=== PATIENT | male | born 1960 | race Caucasian/White ===

== ENCOUNTER 2024-10-27 22:04 | Inpatient (IN) | payer MEDICARE, OTHER, SELFPAY ==
[2024-10-27 18:17] VITALS: BP 117/76
[2024-10-27 18:37] LABS: % Basophils 0.4 % (0-2); % Eosinophils 0.2 % (0-6); % Immature Granulocytes 0.3 % (0-0.5); % Lymphocytes 5.9 % (20.5-51.1); % Monocytes 7.7 % (1.7-9.3); % Neutrophils 85.5 % (42.2-75.2); Absolute Basophils 0.1 10^3/uL (0-0.2); Absolute Immature Granulocytes 0.1 10^3/uL (0-0.05); Absolute Lymphocytes 1.1 10^3/uL (1.2-3.4); Absolute Monocytes 1.4 10^3/uL (0.1-0.6); Absolute Neutrophils 15.6 10^3/uL (1.4-6.5); Hematocrit 39.7 % (39.0-52.0); Hemoglobin 13.4 g/dL (13.0-18.0); Mean Corp Hgb Conc. 33.8 g/dL (33.0-37.0); Mean Corpuscular Hgb 29.6 pg (27.0-31.0); Mean Corpuscular Volume 87.8 fL (80.0-94.0); Mean Platelet Volume 8.9 fL (7.4-10.4); Nucleated Red Blood Cells % 0 % (-); Platelet Count 336 10^3/uL (130-400); Red Blood Cell Count 4.52 10^6/uL (4.70-6.10); Red Cell Dist. Width 12.2 % (11.5-14.5); White Blood Cell Count 18.3 10^3/uL (4.8-10.8)
[2024-10-27 18:51] LABS: ALT (SGPT) 20 U/L (0-50); AST (SGOT) 23 U/L (17-59); Albumin 4.8 g/dl (3.5-5.0); Alkaline Phosphatase 48 U/L (38-126); Blood Urea Nitrogen 21 mg/dl (9-20); Calcium 9.8 mg/dl (8.4-10.2); Carbon Dioxide 23 mmol/L (22-30); Chloride 100 mmol/L (98-107); Glucose 160 mg/dl (70-99); Potassium 4.5 mmol/L (3.5-5.1); Sodium 136 mmol/L (135-145); Total Bilirubin 0.9 mg/dl (0.2-1.3); Total Protein 7.1 g/dl (6.3-8.2); eGFR > 60.00
--- NOTE | 2024-10-27 20:07 | ED.GENMED ---
History of Present Illness
<Domenico Billings PA-C - Last Filed: 10/28/24 00:17>
General
Chief Complaint: Fainting/Passed Out
Source: patient, spouse and family
Time Seen by Provider: 10/27/24 19:32
History of Present Illness
History of Present Illness:
64-year-old male with past medical history of hypertension hyperlipidemia presenting to the emergency department via EMS after he had a syncopal episode while out to dinner with his and friends approximately 30 minutes prior to arrival to the
emergency department. Patient reports that around 3:00 this afternoon while in his basement doing some housework he developed transient lightheadedness, pain in the left posterior portion of his neck, nausea and diaphoresis which lasted for a few
minutes. Patient states that the lightheadedness did persist and he went to lay down but eventually this all passed and he felt well enough to go to dinner. Patient's spouse reports that while sitting at the table patient just slumped over on his
chair, lost consciousness and was laid on the ground. After a few seconds patient awoke and proceeded to have voluminous nonbloody nonbilious emesis. At time of my exam patient reports he is asymptomatic other than feeling fatigued. No reported
fevers, chills, rigors, chest pain, shortness of breath, abdominal pain, lower extremity weakness or numbness, upper extremity weakness, numbness or paresthesia. Patient does note maybe a month ago he had a little bit of an cough but states no
complications from this. Social history was noncontributory. Family history is noted for father having a heart attack at the age of 61. Also of note, patient follows with cardiology at [facility] for which he sees every 6 months stating that he
has mild aortic stenosis which they monitor with echocardiogram. Reportedly had a stress test within the last 2 years which was unremarkable.
Past History
<Domenico Billings PA-C - Last Filed: 10/28/24 00:17>
Past History
ED Past Medical History: HTN and Hypercholesterolemia
ED Past Surgical History: None
Social History
Tobacco: Non-smoker
Alcohol: None
Drug: None
Personal:
Living: with family
Review of Systems
<Domenico Billings PA-C - Last Filed: 10/28/24 00:17>
Review of Systems
All Other Systems: ROS reviewed and negative except as documented in HPI and ROS
Phy Exam
<Domenico Billings PA-C - Last Filed: 10/28/24 00:17>
Physical Exam
Physical Exam:
GENERAL: Alert , in no apparent distress
EYE: clear conjunctiva b/l
HEAD: NCAT
ENT: o/p clr, mmm.
CARDIAC: Regular rate and rhythm, faint systolic murmur right second intercostal space.
LUNGS: Clear breath sounds bilaterally, no acute respiratory distress, no wheezes/rales/rhonchi
ABDOMEN: Soft, without focal tenderness, no r/g, no cvat
NEUROLOGICAL: Alert and oriented
SKIN: Warm and dry, skin intact.
MUSCULOSKELETAL: No edema, well perfused.
PSYCH: Normal and appropriate interaction.
Scores
<Domenico Billings PA-C - Last Filed: 10/28/24 00:17>
Heart Failure Risk
Heart Failure Risk Score: Not Applicable
Heart Score for Chest Pain Patients
STEMI patient?: No
History: Slightly or Non-Suspicious
ECG: Normal
Age: >/= 65 years
Risk Factors: 1 or 2 Risk Factors
Troponin: >1 - <3 x Normal Limit
Heart Score for Chest Pain Patients: 4
Heart Score Risk: 20.3% MACE over next 6 weeks
Withdrawal Assessment of Alcohol
Withdrawal Assessment Completed?: Not applicable
Course
<Domenico Billings PA-C - Last Filed: 10/28/24 00:17>
Orders/Labs/Results
Orders:
Orders
10/27/24 18:14
ECG [Electrocardiogram (*1)] Urgent
Reason for Study: Syncope
EKG- Treatment ONCE
10/27/24 18:27
Complete Blood Count/With Diff Urgent
Comprehensive Metabolic Panel Urgent
Troponin I Urgent
10/27/24 19:33
Urinalysis Reflex To Culture Urgent
10/27/24 19:34
CR Chest - 2 Views Urgent
Comment:
Reason For Exam: leukocytosis, syncope
10/27/24 20:01
Aspirin Chewable [Low Strength Aspirin] 324 mg PO NOW STA
10/27/24 20:41
COVID-19 Antigen Urgent
Source: Nasal Swab
Influenza A+B Rapid Molecular Urgent
IRENA Source: Nasal Swab
Specimen Description:
10/27/24 21:43
Admit/Transfer Patient As Directed
Co-Sign Provider:
Level of Care: Inpatient admission
Assign to:: Telemetry
Physician / Group: shayna
Diagnosis: syncope
Reason for Telemetry: Syncope
Date to Stop Telemetry: 10/29/24
Time to Stop Telemetry: 11:00
Reason for Hospitalization: syncope
Expected length of stay greater than two midnights?: Yes
ELOS- Estimated Length of Stay in days: 3
I certify the patient meets the requirements for IP care: Yes
Code Status As Directed
Resuscitation Status: Full Code
PRN Pain Medication Management As Directed
May give lesser potent ordered pain med per pt: Yes
preference::
Protocol:: Medication orders for pain may be administered in a
manner that supports deferring to patient preference
when the pt is:
- Requesting an ordered lesser potent pain medication.
Least to most potent pain medications are defined
as: acetaminophen < NSAID < tramadol < opioids
(morphine, oxycodone, hydromorphone).
- Requesting a lesser dose of the same medication IF
ORDERED.
- Requesting a less intrusive route of administration
if both routes are prescribed by the provider (PO <
IV).
10/27/24 22:01
Troponin I Urgent
10/29/24 11:00
DC Protocol for Telemetry ONCE
Abnormal Lab Results
10/27/24 10/27/24
18:27 22:01
WBC 18.3 H 10^3/uL
(4.8-10.8)
RBC 4.52 L 10^6/uL
(4.70-6.10)
Abs Immat Gran (auto) 0.1 H 10^3/uL
(0-0.05)
Absolute Neuts (auto) 15.6 H 10^3/uL
(1.4-6.5)
Absolute Lymphs (auto) 1.1 L 10^3/uL
(1.2-3.4)
Absolute Monos (auto) 1.4 H 10^3/uL
(0.1-0.6)
Neutrophils % 85.5 H %
(42.2-75.2)
Lymphocytes % 5.9 L %
(20.5-51.1)
BUN 21 H mg/dl
(9-20)
Glucose 160 H mg/dl
(70-99)
Troponin I 0.050 H* ng/ml 0.167 H* D ng/ml
10/27/24 18:27
10/27/24 18:27
Vital Signs
Initial and Last Documented VS:
Initial Vital Signs
Temp Pulse Resp BP Pulse Ox
98 F 89 18 117/76 96
10/27/24 18:17 10/27/24 18:17 10/27/24 18:17 10/27/24 18:17 10/27/24 18:17
Last Documented Vital Signs
Temp Pulse Resp BP Pulse Ox
98 F 81 16 125/84 96
10/27/24 18:17 10/27/24 22:04 10/27/24 22:04 10/27/24 22:04 10/27/24 22:04
<Terry Lazo, DO - Last Filed: 10/27/24 20:24>
Orders/Labs/Results
Orders:
Orders
10/27/24 18:14
ECG [Electrocardiogram (*1)] Urgent
Reason for Study: Syncope
EKG- Treatment ONCE
10/27/24 18:27
Complete Blood Count/With Diff Urgent
Comprehensive Metabolic Panel Urgent
Troponin I Urgent
10/27/24 19:33
Urinalysis Reflex To Culture Urgent
10/27/24 19:34
CR Chest - 2 Views Urgent
Comment:
Reason For Exam: leukocytosis, syncope
10/27/24 20:01
Aspirin Chewable [Low Strength Aspirin] 324 mg PO NOW STA
10/27/24 20:41
COVID-19 Antigen Urgent
Source: Nasal Swab
Influenza A+B Rapid Molecular Urgent
IRENA Source: Nasal Swab
Specimen Description:
10/27/24 21:43
Admit/Transfer Patient As Directed
Co-Sign Provider:
Level of Care: Inpatient admission
Assign to:: Telemetry
Physician / Group: [email or web address]
Diagnosis: syncope
Reason for Telemetry: Syncope
Date to Stop Telemetry: 10/29/24
Time to Stop Telemetry: 11:00
Reason for Hospitalization: syncope
Expected length of stay greater than two midnights?: Yes
ELOS- Estimated Length of Stay in days: 3
I certify the patient meets the requirements for IP care: Yes
Code Status As Directed
Resuscitation Status: Full Code
PRN Pain Medication Management As Directed
May give lesser potent ordered pain med per pt: Yes
preference::
Protocol:: Medication orders for pain may be administered in a
manner that supports deferring to patient preference
when the pt is:
- Requesting an ordered lesser potent pain medication.
Least to most potent pain medications are defined
as: acetaminophen < NSAID < tramadol < opioids
(morphine, oxycodone, hydromorphone).
- Requesting a lesser dose of the same medication IF
ORDERED.
- Requesting a less intrusive route of administration
if both routes are prescribed by the provider (PO <
IV).
10/27/24 22:01
Troponin I Urgent
10/29/24 11:00
DC Protocol for Telemetry ONCE
Abnormal Lab Results
10/27/24 10/27/24
18:27 22:01
WBC 18.3 H 10^3/uL
(4.8-10.8)
RBC 4.52 L 10^6/uL
(4.70-6.10)
Abs Immat Gran (auto) 0.1 H 10^3/uL
(0-0.05)
Absolute Neuts (auto) 15.6 H 10^3/uL
(1.4-6.5)
Absolute Lymphs (auto) 1.1 L 10^3/uL
(1.2-3.4)
Absolute Monos (auto) 1.4 H 10^3/uL
(0.1-0.6)
Neutrophils % 85.5 H %
(42.2-75.2)
Lymphocytes % 5.9 L %
(20.5-51.1)
BUN 21 H mg/dl
(9-20)
Glucose 160 H mg/dl
(70-99)
Troponin I 0.050 H* ng/ml 0.167 H* D ng/ml
10/27/24 18:27
10/27/24 18:27
Vital Signs
Initial and Last Documented VS:
Initial Vital Signs
Temp Pulse Resp BP Pulse Ox
98 F 89 18 117/76 96
10/27/24 18:17 10/27/24 18:17 10/27/24 18:17 10/27/24 18:17 10/27/24 18:17
Last Documented Vital Signs
Temp Pulse Resp BP Pulse Ox
98 F 81 16 125/84 96
10/27/24 18:17 10/27/24 22:04 10/27/24 22:04 10/27/24 22:04 10/27/24 22:04
<Domenico Billings PA-C - Last Filed: 10/28/24 00:17>
MDM/Problems Addressed
Differential Diagnosis Includes:
Vagal event, cardiac dysrhythmia, ACS, vertebral dissection, aortic dissection, less concern for PE, given potential recent viral illness, myocarditis/pericarditis, dehydration, COVID/flu
MDM/Problems Addressed:
64-year-old male presenting the emergency department via EMS after a syncopal event at a restaurant. Patient had no prodromal symptoms at that time but earlier in the day did have some lightheadedness, diaphoresis and posterior neck pain. Biggest
concern would be vascular etiology versus an atypical ACS presentation. Labs were initiated on arrival which show a leukocytosis of 18,000 and a very mild elevated troponin at 0.050. Case discussed with Dr. Lazo who will also evaluate the
patient to help determine further testing/imaging. 324 of aspirin ordered. Plan for admission for further workup.
Chronic conditions affecting care: HTN
<Domenico Billings PA-C - Last Filed: 10/28/24 00:17>
*Radiology
Radiology exam reviewed: preliminary read by ED provider (No widened mediastinum)
*Pulse Oximetry
Patient hypoxic: no
*EKG
Interpreted by ED Provider?: Yes
Heart Rate: 92
Rate: normal
Rhythm: sinus
[place]: normal axis
Ischemia: no ischemia
*Credit Portfolio Manager Interpretation
Rate: normal
Rhythm: sinus
*Critical Care Note
Total Time (30-74mins, 75-104mins- exclusive of procedures): Not Applicable
Data Reviewed
Review of Other/Old Records Reveals: Records
<Domenico Billings PA-C - Last Filed: 10/28/24 00:17>
Patient Management
Discussion with other providers: Hospitalist and Punch Out Crew Member
Escalation/DeEscalation of care consider admission/obs:
Case was discussed with cardiology due to patient's presentation and concerning symptoms for ACS. Cardiology does not recommend heparin at this time however if troponin continues to rise or patient develops chest discomfort this could certainly be
initiated. They will evaluate the patient in the morning. Hospitalist team accepts for continued evaluation and treatment. Repeat troponin was ordered.
ED Attending Note
<Domenico Billings PA-C - Last Filed: 10/28/24 00:17>
-
Portions of this chart may have been created with voice recognition software.� Occasional wrong word or��sound alike� substitutions may have occurred due to the inherent limitations of voice recognition software.
<Terry Lazo DO - Last Filed: 10/27/24 20:24>
ED Attending Note
Patient seen and examined by attending physician: Yes
I performed the substantive portion of visit, reviewed & personally made and approve the management plan that is documented in note by myself or REYNA.: Yes
ED Attending Note:
I have seen and evaluated the patient with a [id number] encounter. I have spoken to the advance practicer provider and involved in the medical history, the physical exam, medical decision making.
Evaluation and management service: agree unless noted differently below.
Results interpretation: agree unless noted differently below.
Focused HPI: 64-year-old male presenting for evaluation of syncope. Patient was doing mild lifting and work in the basement earlier today. He felt very dizzy and lightheaded. Since the symptoms resolved, he went out to dinner with his .
While at dinner, patient syncopized while sitting without any preceding symptoms. Patient has been complaining of neck pain but he localizes the pain to the back of the neck and not the front. He denies any active chest pain or shortness of
breath. He does acknowledge that his father had an IL around his age. He follows with [facility]ology and states he had a stress and echo 1.5 years ago which were normal. He has a history of aortic stenosis and states he got a good bill of
health recently but was told he may need a valve replacement in 10 years
Physical exam: Sitting in bed comfortably. No tenderness to carotid palpation. Heart regular rate and rhythm. Murmur auscultated. No leg edema or tenderness
Medical Decision Making: Given his syncope at rest and his elevated troponin, will give aspirin and discussed case with cardiology. Will discuss whether or not to start heparin. He has no active chest pain or shortness of breath. Patient will
likely require echo and +/- catheterization
Given no active chest or back pain or carotid tenderness, aortic and carotid dissection less likely
Discharge Plan
Departure
Patient Disposition: Admit
Date of Disposition: 10/27/24
Time of Disposition: 21:16
Presentation/result/management discussed w/ accepting MD/DO: Hospitalist
Discharge Problem:
Syncope and collapse, Elevated troponin
Interventions
Interventions:
*Risk Screen - Suicide Last Done: 10/27/24 18:17
*General Assessment Last Done: 10/27/24 18:17
*Neglect/Abuse Screening Last Done: 10/27/24 18:17
[2024-10-27] MEDS: LOW STRENGTH ASPIRIN 324 MG PO (20:41)
--- NOTE | 2024-10-27 21:18 | HPS.HSE ---
Family Physician
-
Family Physician: Toshia Krishnan MD
Chief Complaint
-
syncope
History of Present Illness
4-year-old male with past medical history of hypertension hyperlipidemia presenting to the emergency department via EMS after he had a syncopal episode while out to dinner with his and friends patient reports that around 3:00 this afternoon
while in his basement doing some housework he developed transient lightheadedness, pain in the left posterior portion of his neck, nausea which lasted for few seconds.Patient's spouse reports that while sitting at the table patient just slumped over
on his chair, lost consciousness and was laid on the ground. After a few seconds patient awoke and proceeded to have voluminous nonbloody nonbilious emesis. denied ALVES. denied fever, chills, chest pain, palpitation, sob.denied abdominal pain.
denied dysuria or hematuria.
upon arrival he was noted to have elevated wbc and trop. Patient received a dose of aspirin in the ER. Admitting for further management
Medical History
Past Medical History
Past Medical History: Reports Other
Additional Past Medical History:
Hypertension hyperlipidemia, aortic stenosis,
Past Surgical History: Reports None and Other
Additional Past Surgical History:
wisdom teeth extraction
Social History
Tobacco: Non-smoker
Alcohol: None
Drug: None
Personal:
Living: With Family
Family History
Family History: Not pertinent
Allergies / Home Medications
Allergies reflects when Allergies were last updated in [employer].
Home Medications with original date entered in [employer]
Allergy/Medication List:
Allergies
Allergy/AdvReac Type Severity Reaction Status Date / Time
No Known Allergies Allergy Verified 10/27/24 18:16
Review of Systems
-
Constitutional: Reports Fatigue
EENT: Reports No Symptoms
Respiratory: Reports No Symptoms
Cardiac: Reports Syncope
Abdomen/GI: Reports No Symptoms
: Reports No Symptoms
Musculoskeletal: Reports No Symptoms
Skin: Reports No Symptoms
Neurological: Reports No Symptoms
Endocrine: Reports No Symptoms
Hematologic/Lymphatic: Reports No Symptoms
Psych: Reports No Symptoms
Physical Exam
Vital Signs
Vital Signs
Temp Pulse Resp BP Pulse Ox
98 F 89 18 117/76 96
10/27/24 18:17 10/27/24 18:17 10/27/24 18:17 10/27/24 18:17 10/27/24 18:17
Physical Exam
General: Well Developed, Well Nourished and No Apparent Distress
HEENT: NormoCephalic, Moist mucous membranes and Atraumatic
Respiratory: Clear
Cardiac: S1/S2 and Regular Rhythm; No Murmur or Rub
GI: Soft, Non Tender, Non Distended and Normal Bowel Sounds; No Organomegaly
Rectal: Deferred by Provider
Musculoskeletal: No Clubbing, No Cyanosis and No Edema
Skin: No Rash
Neuro: AO x 3 and Nonfocal/grossly intact
Psych: Calm
Laboratory Results
-
10/27/24 18:27
10/27/24 18:27
Laboratory Results
Total Bilirubin 0.9 mg/dl (0.2-1.3) 10/27/24 18:27
AST 23 U/L (17-59) 10/27/24 18:27
ALT 20 U/L (0-50) 10/27/24 18:27
Alkaline Phosphatase 48 U/L (38-126) 10/27/24 18:27
Troponin I 0.050 ng/ml H* 10/27/24 18:27
Data Reviewed
-
Lab Data: Labs Reviewed by me
Impression/Plan
-
# Syncope /elevated trop concern for ACS
#hxt of Aortic stenosis
-tro 0.050
-EKG NSR
-Obtain D-dimer
-Obtain echocardiogram
-obtain orthostatics
-Trend troponin
-Cardiology consult
#leukocytosis likely stress reaction
-wbc 18.3
-UA pending
-Chest x-ray pending
# Essential hypertension
-Norvasc and valsartan continued
# Hyperlipidemia
-Statin continued
# DVT prophylaxis
-Lovenox subcu
# CODE STATUS
-Full code
[2024-10-27 21:33] LABS: COVID-19 Antigen Negative (Negative)
--- NOTE | 2024-10-27 21:38 | W.PN.UPDATE ---
Update Note
Progress Note Update
Patient seen in conjunction with ALISHA. I agree with findings on history and physical. I concur with the assessment and plan.
Briefly, this is a 64-year-old with past medical history significant for hypertension, hyperlipidemia, with diagnosis of mild to moderate aortic stenosis pain followed by cardiology at [facility] who presents to the emergency department after
syncopal episode at dinner.
Patient actually reported being in usual state of health up until this afternoon when at around 3 PM after performing some walking his basement he felt lightheaded. During the lightheaded episode he also felt nauseous. He denied having any chest
pain at that time. He denied any palpitations. He denied any shortness of breath. He denied any numbness or tingling. He denied any focal neurological deficits. This lasted for about an hour and a check his blood pressure which was stable at
that time 116/81. He had taken his usual blood pressure medications. There were no other changes in his symptoms such as any recent cough cold or flulike illness. No recent lower extremity swelling. No orthopnea or PND or exertional dyspnea. He
had no diarrhea or vomiting. No melena or hematochezia.
Patient later went to dinner. While sitting down within 14 he essentially collapsed. He slumped in his chair and was unresponsive for less than a minute. There was no seizure-like activity noted. He had no loss of bladder or bowel continence.
He denied any presyncopal chest pain, palpitations, lightheadedness headache or dizziness. After return of consciousness patient had no postictal confusion or depression. He had 2 episodes of vomiting after the syncopal episode and en route to the
emergency department that was voluminous but nonbloody and nonbilious. He had no chest pain. He had not had any additional vomiting since then and currently denies any symptoms.
In the emergency department he was afebrile, blood pressure was 117/76 with a pulse of 89 satting 96% on room air. ECG showed a normal sinus rhythm at a rate of [address] or T wave changes. Troponin was 0.05. Chest x-ray shows no
acute infiltrates. CBC notable for white count of 18,000 but otherwise unremarkable.
Exam is completely benign.
Patient with presyncope then a syncopal episode that is highly concerning for cardiac arrhythmia (cira/tachy) and less likely an acute ischemic process. No evidence to suggest hypovolemia/orthostasis and no particular indication of a vasovagal
episode. Past medical history only notable for mild aortic stenosis.
- admit to telemetry and monitor at least 24 hours
- trend troponin
- s/p aspirin 324, monitor for now
- check tsh, cardiovascular panel and a1c
- check d-dimer
- echo in am
- orthostatic vs
- trend wbc, fever profile for now, no signs of acute infection
- cardiology consulted and aware.
DVT PPX - lovenox
Code status - full code
[2024-10-27 22:00] VITALS: BMI 29.3
[2024-10-27 22:04] VITALS: BP 125/84
[2024-10-27 22:45] LABS: Troponin I 0.167 ng/ml
[2024-10-28] VITALS (23 sets, daily range): BP systolic 107–147; BP diastolic 70–95; PULSE 71–83; BMI 25.8
[2024-10-28 00:05] LABS: Hematocrit 37.5 % (39.0-52.0); Hemoglobin 12.9 g/dL (13.0-18.0); Mean Corp Hgb Conc. 34.4 g/dL (33.0-37.0); Mean Corpuscular Hgb 29.8 pg (27.0-31.0); Mean Corpuscular Volume 86.6 fL (80.0-94.0); Mean Platelet Volume 9.4 fL (7.4-10.4); Platelet Count 354 10^3/uL (130-400); Red Blood Cell Count 4.33 10^6/uL (4.70-6.10); Red Cell Dist. Width 12.2 % (11.5-14.5); White Blood Cell Count 13.5 10^3/uL (4.8-10.8)
[2024-10-28 00:13] LABS: APTT 26.4 Sec (23.4-35.0)
[2024-10-28 01:33] LABS: D-Dimer < 0.27 ug/mlFEU (0.00-0.50)
[2024-10-28] MEDS: HEPARIN 25000 UNITS/250 ML IV ×2 (01:35→22:33)
[2024-10-28 02:32] LABS: Urine Albumin 2+ (Neg - Trace); Urine Bilirubin Negative (Negative); Urine Character Clear (Clear); Urine Color Yellow; Urine Glucose Negative (Negative); Urine Ketone 3+ (Negative); Urine Leukocyte 1+ (Negative); Urine Nitrite Negative (Negative); Urine Occult Blood 1+ (Negative); Urine Specific Gravity 1.025 (<1.030); Urine Urobilinogen Negative (Neg - 1+)
[2024-10-28 03:01] LABS: Urine Amorphous Seen; Urine Mucus Many; Urine White Cell 16-20 /HPF (0-5)
[2024-10-28 03:02] LABS: Urine Bacteria Many (Negative); Urine Calcium Oxalate Crystals Seen
[2024-10-28 03:03] LABS: Urine Squamous Cell 16-20 /LPF (Few)
[2024-10-28 04:05] LABS: Hematocrit 36.6 % (39.0-52.0); Hemoglobin 12.6 g/dL (13.0-18.0); Mean Corp Hgb Conc. 34.4 g/dL (33.0-37.0); Mean Corpuscular Hgb 30.4 pg (27.0-31.0); Mean Corpuscular Volume 88.4 fL (80.0-94.0); Mean Platelet Volume 9.2 fL (7.4-10.4); Platelet Count 338 10^3/uL (130-400); Red Blood Cell Count 4.14 10^6/uL (4.70-6.10); Red Cell Dist. Width 12.3 % (11.5-14.5); White Blood Cell Count 12.1 10^3/uL (4.8-10.8)
[2024-10-28 04:33] LABS: HDL Cholesterol 43 mg/dl; LDL Cholesterol, Calculated 44 mg/dl; Total Cholesterol 94 mg/dl (50-199); Triglyceride 36 mg/dl (10-149); Very Low Density Lipoprotein 7 mg/dl (0-30)
[2024-10-28 04:49] LABS: Troponin I 0.584 ng/ml
[2024-10-28 04:59] LABS: TSH Reflex To Free T4 0.65 uIU/ml (0.47-4.68)
--- NOTE | 2024-10-28 06:52 | W.PN.UPDATE ---
Update Note
Progress Note Update
RN notified BRAKE LINING DRILLER, Troponin been trending high 0.050>0.167>0.584. Patient is on Heparin drip, asymptomatic, Marine Equipment Sales Engineer made aware. Troponin trend to peak.
[2024-10-28] MEDS: NORVASC 5 MG PO (07:47)
[2024-10-28] MEDS: LOW STRENGTH ASPIRIN 81 MG PO (07:47)
[2024-10-28] MEDS: LIPITOR 10 MG PO (07:47)
[2024-10-28] MEDS: DIOVAN 160 MG PO (07:47)
[2024-10-28 08:21] LABS: APTT 35.3 Sec (23.4-35.0)
[2024-10-28 08:41] LABS: Glycohemoglobin (HgbA1c) 5.8 % (4.0-5.6)
--- NOTE | 2024-10-28 09:19 | CON.CAR ---
Consultation
Consultation Request
Date/Time Consultation Requested: October 28, 2024
Date/Time Consultation Performed: October 28, 2024
Requesting Provider: Hospitalist
Performing Provider: Dr Ritesh Montez
Reason for Consultation: Syncope
Medical History
-
Chief Complaint: Passed out
History of Present Illness:
He was brought to the emergency department at [place] via emergency medical services on October 27, 2024 after an episode of syncope. At approximately 3 PM in the afternoon on October 27 while in his basement doing some housework it is noted
that he developed transient lightheadedness as well as pain in the left posterior portion of his neck along with nausea and diaphoresis which lasted a few minutes. He then went to lay down and after he got up he did feel better. He felt well
enough to go out to dinner. Then while at dinner patient's spouse notes that while he was sitting at the table he simply slumped over in his chair and lost consciousness, he was laid gently to the ground. After few seconds patient awoke and
proceeded to have voluminous vomiting. By the time he presented to the emergency department he had no complaints other than feeling very fatigued.
He has had no recent fevers chills or night sweats. No chest pain. No shortness of breath. No abdominal discomfort. No extremity numbness weakness or tingling, no difficulty with speech or swallow.
His EKG on presentation October 27, 2024 reviewed by me and shows sinus rhythm, normal EKG
EKG from this morning October 28, 2024 reviewed by me and finds sinus rhythm with occasional PVCs and suspected improper positioning of the limb leads
Troponin values: 0.050 -> 0.167 -> 0.584
Chest x-ray on presentation reviewed and interpreted by me finds moderate elevation of the right hemidiaphragm with adjacent atelectasis, no congestive heart failure, no obvious pneumonia.
LDL cholesterol 44, HDL 43, total cholesterol 94 and triglycerides 36
TSH 0.65
Elevated white blood cell count at 18.3 with hemoglobin and hematocrit of 13 and 40, there is a left shift with neutrophils at 85.5
BUN and creatinine 21 and 1.2 with a sodium 136, potassium 4.5, normal LFTs
Past medical history
Patient notes that he is followed at [facility] at [facility] for mild aortic stenosis.
He has hypertension
Dyslipidemia
Social History
Tobacco: Non-Smoker
Alcohol: None
Personal:
Living: With Family
Family History
Family History: CAD (Father myocardial infarction at age 61)
Allergies / Home Medications
Allergy/AdvReac Type Severity Reaction Status Date / Time
No Known Allergies Allergy Verified 10/27/24 18:16
�Medication �Instructions �Recorded �Confirmed �Type
amlodipine 5 mg tablet (Norvasc) 5 mg PO DAILY 10/27/24 10/27/24 History
atorvastatin 10 mg tablet 10 mg PO DAILY 10/27/24 10/27/24 History
valsartan 160 mg tablet 160 mg PO DAILY 10/27/24 10/27/24 History
Review of Systems
-
History Source: Patient
All other systems: Negative unless noted
Constitutional: Fatigue
EENT: No Symptoms
Respiratory: No Symptoms
Cardiac: Syncope
Abdomen/GI: Nausea and Vomiting
: No Symptoms
Musculoskeletal: No Symptoms
Skin: No Symptoms
Neurological: Dizzy
Endocrine: No Symptoms
Hematologic/Lymphatic: No Symptoms
Physical Exam
Vital Signs
Temp Pulse Resp BP Pulse Ox
98.7 F 75 0 139/84 96
10/28/24 08:00 10/28/24 09:15 10/28/24 09:15 10/28/24 09:00 10/28/24 09:15
Lab Results
10/28/24 03:48
10/27/24 18:27
Troponin I 0.584 ng/ml H* D 10/28/24 03:48
Physical Exam
General: Well Developed, Well Nourished, No Apparent Distress and Comfortable (Laying in stretcher in the emergency department smiling, no distress)
HEENT: Normocephalic, Anicteric and Moist Mucous Membranes
Respiratory: Clear and Non Labored Respirations
Cardiac: S1/S2, Regular Rhythm and Murmur (There is a grade 2/6 systolic ejection murmur at the right upper sternal border, no rubs, normal PMI)
Breast: Deferred by me
GI: Soft, Non Tender, Non Distended and Normal Bowel Sounds
Rectal: Deferred by Provider
Musculoskeletal: No Clubbing, No Cyanosis and No Edema
Skin: Warm and Dry
Neuro: Awake, Alert, Oriented and AO x 3
Psych: Calm
Impression / Plan
-
Impression/recommendations:
Syncope
Suspected vasovagal with his first episode of dizziness possibly triggered by neck pain which occurred while he was installing insulation in his basement
The second episode of syncope was rather sudden with no clear trigger. While troponin has elevated this is likely non-MD related troponin elevation to the hypotensive episode, doubt MD as trigger for syncope
Volume depletion may have played a role, recommend IV fluid hydration, will order IV fluids
Check echocardiogram in the morning
Continue to monitor telemetry closely for any arrhythmias which could be playing a role
Elevated troponin value
Troponin values: 0.050 -> 0.167 -> 0.584
Nonischemic appearing EKG x 2
This is likely non-MD related troponin elevation secondary to his hypotensive episode with vasovagal syncope but will continue to evaluate for any significant ischemic etiology
Continue to trend troponins and EKGs
He reports ' normal nuclear stress test' 1 year ago at [facility] and we should attempt to review those records on Tuesday
Consideration for a new ischemic evaluation given the elevated troponins, pending ongoing evaluation this could be considered as an inpatient or outpatient
History of aortic stenosis
Patient notes that he is followed at [facility] at [facility] for mild aortic stenosis.
It is possible that progressive aortic stenosis has played a role particularly if he is mildly hypotensive with a mild vasovagal episode in the presence of significant aortic stenosis, symptoms could be more severe
On cardiac auscultation exam the aortic stenosis is probably no more than moderate but will need to check echocardiogram to formally assess
Check echocardiogram in the morning
Hypertension
Managed with amlodipine 5 mg daily and valsartan 160 mg daily
He is normotensive and therefore would continue current outpatient antihypertensive drugs
Elevated right hemidiaphragm on admission chest x-ray
Further evaluation as per primary service
Further imaging/CT imaging?
Dyslipidemia
Managed with atorvastatin 10 mg daily
10/28/24: LDL cholesterol 44, HDL 43, total cholesterol 94 and triglycerides 36, Nl LFTs
Discussed in detail with the patient as well as his and son who are at the bedside. All of their questions have been answered.
Total time spent today was 78 minutes in preparing to see the patient, seeing the patient and coordination of care. This included review of recent laboratory evaluations, cardiac testing, imaging studies, medical and hospital records, as well as
personally interviewing and examining the patient, which included discussion of their tests, review/ordering medications, and communicating with other healthcare professionals and also treatment planning as well as counseling.
Data Reviewed
-
EKG: Tracing Personally Visualized and interpreted
Radiology: Image Personally Visualized and interpreted
Labs: Labs Reviewed by me, Discussed with Patient and Discussed with Family
[2024-10-28 10:15] LABS: Troponin I 0.622 ng/ml
--- NOTE | 2024-10-28 13:11 | W.PN.HOSP.TC ---
Today's Communication/Plan
-
pending Ur cx, will start empiric Rocephin
Assessment / Plan
Assessment / Plan
64-year-old male with past medical history of hypertension hyperlipidemia presenting to the emergency department via EMS after he had a syncopal episode while out to dinner with his and friends patient reports that around 3:00 this afternoon
while in his basement doing some housework he developed transient lightheadedness, pain in the left posterior portion of his neck, nausea which lasted for few seconds.Patient's spouse reports that while sitting at the table at dinner, prior to
eating, patient just slumped over on his chair, lost consciousness and was laid on the ground. After a few seconds patient awoke and proceeded to have voluminous nonbloody nonbilious emesis. denied ALVES. denied fever, chills, chest pain,
palpitation, sob.denied abdominal pain. denied dysuria or hematuria.
# Syncope /elevated trop concern for ACS, potentially related to
#hxt of Aortic stenosis
-tro 0.050-->0.167-->0.584-->0.622
-EKG NSR
-Obtain D-dimer
-Obtain echocardiogram
-obtain orthostatics
-Trend troponin
-Cardiology consult
#leukocytosis likely stress reaction
-wbc 18.3-->13.5-->12.1
-UA bacteria many, +WBC. Culture pending
high probability for UTI/Prostatitis - possible contributing to syncope
-Chest x-ray 1. Moderate elevation of the right hemidiaphragm with adjacent mild subpleural subsegmental atelectasis and scarring in the right lower lung which appears new from 12/08/2010.
2. No radiographic evidence for pneumonia.
# Essential hypertension
-Norvasc and valsartan continued
# Hyperlipidemia
-Statin continued
# DVT prophylaxis
-Lovenox subcu
# CODE STATUS
-Full code
Anticipated Discharge: 24 - 48 hours
Subjective/Interval History
-
Date of Service: October 28, 2024
Currently feels well, no dizziness
Objective Data
-
Labs:
Laboratory Results
10/28/24 10/28/24 10/28/24
03:48 07:52 16:00
WBC 12.1 H
Hgb 12.6 L
Hct 36.6 L
Plt Count 338
APTT 35.3 H Pending
Vital Signs:
Vital Signs
Temp Pulse Resp BP Pulse Ox
98.7 F 74 15 116/78 96
10/28/24 08:00 10/28/24 12:30 10/28/24 12:30 10/28/24 12:00 10/28/24 12:30
Review of Systems
-
History Source: Patient and Family (, son at bedside)
Constitutional: Denies Fever
EENT: Reports No Symptoms Reported
Respiratory: Reports No Symptoms; Denies Cough or Trouble Breathing
Cardiac: Reports No Symptoms; Denies Chest Pain
Abdomen/GI: Reports No Symptoms
Musculoskeletal: Reports No Symptoms
Physical Exam
-
General: Well Developed, Well Nourished and No Apparent Distress
HEENT: Normocephalic, Atraumatic and Moist Mucous Membranes
Respiratory: Clear to Auscultation; Negative Wheezes, Rales or Rhonchi
Cardiac: Regular Rhythm, S1/S2 and Murmur (3/6AS m)
GI: Nontender and Nondistended
Musculoskeletal: No Clubbing, No Cyanosis and No Edema
Neuro: Awake, Alert and Oriented
[2024-10-28] MEDS: ROCEPHIN 1000 MG IV (15:15)
[2024-10-28] MEDS: STERILE WATER FOR INJECTION 10 ML IV (15:15)
[2024-10-28 16:39] LABS: APTT 60.7 Sec (23.4-35.0)
--- NOTE | 2024-10-28 21:26 | PTCARENOTE ---
Receive pt from ER. Pt alert oriented X3, calm and cooperative. Pt walks independently to his bed, steady gait. Pt oriented to the room, call orta within reach. Pt denies dizziness, lightheadedness, or SOB. Hep gtt infusing at rate of 1400 units
(14mL) per Hr. Pt on NSR on telemonitor. VSS (T=98.5, HR=87, RR=18, HP=612/84, SpO2=96% on RA). Plan of care discussed with the pt: Echo and EKG in am. Will continue to monitor the pt.
[2024-10-29] VITALS (8 sets, daily range): BP systolic 111–138; BP diastolic 69–91; PULSE 60–103
[2024-10-29 00:07] LABS: APTT 93.1 Sec (23.4-35.0)
[2024-10-29 06:32] LABS: Hematocrit 39.6 % (39.0-52.0); Hemoglobin 13.3 g/dL (13.0-18.0); Mean Corp Hgb Conc. 33.6 g/dL (33.0-37.0); Mean Corpuscular Hgb 29.8 pg (27.0-31.0); Mean Corpuscular Volume 88.8 fL (80.0-94.0); Mean Platelet Volume 9.4 fL (7.4-10.4); Platelet Count 358 10^3/uL (130-400); Red Blood Cell Count 4.46 10^6/uL (4.70-6.10); Red Cell Dist. Width 12.2 % (11.5-14.5); White Blood Cell Count 9.6 10^3/uL (4.8-10.8)
[2024-10-29 06:49] LABS: APTT 83.9 Sec (23.4-35.0)
[2024-10-29 06:59] LABS: Troponin I 0.389 ng/ml
[2024-10-29] MEDS: LOW STRENGTH ASPIRIN 81 MG PO (09:56)
[2024-10-29] MEDS: DIOVAN 160 MG PO (09:56)
[2024-10-29] MEDS: LIPITOR 10 MG PO (09:56)
[2024-10-29] MEDS: NORVASC 5 MG PO (09:56)
--- NOTE | 2024-10-29 12:15 | W.PN.CARDCBS ---
Addendum entered and electronically signed by Diane Coronado DO 10/29/24 22:32:
I saw and examined the patient.
The Partition Setter's note was reviewed and I agree with the note.
Comment: Patient seen and examined with multiple family members at bedside. Chart/telemetry reviewed. Reviewed outpatient echocardiogram done at [facility] with Dr. Morales. Since admission, patient feels well and back at baseline. Denies chest pain
or pressure, shortness of breath, palpitations or abdominal pain. No further nausea or vomiting. No dizziness.
General: No acute distress, AAOX3
Neck: + bruit vs radiation of murmur
Heart: Regular, positive S1/S2, 2/6 MICHAEL
Lungs: CTA b/l, negative wheezes/rales/rhonchi
Abd: Positive BS, NT/ND, neg rebound/rigidity/guarding
Ext: Negative cyanosis/clubbing/edema
Neuro: nonfocal
Plan:
Presented with near syncope followed by syncope 10/27/2024
-Reports near syncopal episode/lightheadedness at home prior to going out to dinner. Suspected vasovagal with his first episode of dizziness possibly triggered by neck pain which occurred while he was installing insulation in his basement; admits
he may have been a little dehydrated. Blood pressure at the time was reportedly normal.
-Syncopal episode without prodrome while sitting in a restaurant had dinner prior to meal arriving. Episode witnessed by who denies seizure-like activity or loss of bowel/bladder. Patient states following this event he had several episodes of
vomiting while en route to [facility].
-No prior history of syncope/near syncope
-Telemetry without tacky or bradycardia arrhythmias
-Orthostatic VS negative.
-Hemoglobin A1c elevated in prediabetic range, 5.8% TSH within normal limits. Total cholesterol 94, triglycerides 36, LDL 44, HDL 43. Peak troponin 0.622. Initial WBC count 18.3. WBC count today 9.6. Hemoglobin 13.3, COVID-negative. UA +/Urine
culture no growth. Influenza swab negative. D-dimer not elevated
-2D echocardiogram with normal biventricular size and systolic function with moderate calcific aortic stenosis with peak/mean gradients 44/22 mmHg. His aortic valve is trileaflet thickened and calcified with mobile echodensities particularly on the
noncoronary cusp and aortic annular calcification. Echodensities likely areas of calcification although cannot completely exclude vegetation. I spoke with his usual business machines teacher Dr. Morales who reviewed prior echocardiogram last year with
reportedly similar aortic valve findings. For completion we will send off a set of blood cultures. Although we did briefly discuss a transesophageal echocardiogram, we will hold off for now given similar findings described on prior echocardiogram.
At time of discharge please place echocardiogram on a disk to bring to his business machines teacher
-Abnormal cardiac troponin without chest pain. Received records from [facility] and low risk exercise nuclear stress test was from 2021. Will proceed with an exercise nuclear stress test prior to discharge.
-Will consider rhythm star monitor car operator at the time of discharge
-Check carotid duplex
-Discontinue IV heparin
-Cont aspirin 81 mg daily
-Outpatient dose of atorvastatin 10 mg daily was held, will restart.
-Outpatient doses of valsartan 160 mg daily has been continued.
-Outpatient dose of amlodipine 5 mg daily has been continued.
-[facility] 10/27/24 showed moderate elevation of the right hemidiaphragm with adjacent mild subpleural subsegmental atelectasis and scarring in the right lower lung which appears new from 12/08/2010.
Anticipate discharge home tomorrow. Patient instructed to make a follow-up appointment with [facility], Dr. Gibbons. He is leaving for the [facility] with family on a [place] cruise in a couple of weeks
Original Note:
Today's Communication / Plan
-
-Working on getting outpatient records form [facility] at [facility]
-52 min in face to face and coordination of care
Impression / Plan
-
PCP: Dr. Toshia Krishnan
Card: Dr. Morales
Impression:
Admitted with syncope and elevated Troponin10/27/24
Syncope 10/27/24
near syncope associated with pain initially and then hours later abrupt syncope while seated at dinner table and then awoke and vomited
Moderate peak/mean 44/22 and KARLOS 1.1 cm sq by echo 10/29/24
Abnormal echo, thickened aortic valve
Abnormal UA with no growth on urine culture
Elevated Troponin
HTN
Hyperlipidemia
Echo 10/29/2024: Preliminary report, EF 50% without WMA, moderate AAS peak/mean 44/22 mmHg and KARLOS 1.1 cm sq
Plan:
-Patient came to [facility] with syncope 10/27/24, no recurrence. BUN was 21 and Cre 1.2 in the ER. UA abnormal, but culture without growth. Orthostatic VS negative. EF stable by echo. Troponin peaked at 0.62.
-Talked with patient and family members x4 in the room 10/29/24. Reviewed prelim echo and plan for me to call the [facility] office to get records of last echo, office visit and stress test. Patient asking about d/c to home.
-Called [facility] to get records 10/29/24, performed by me.
-Troponin peaked at 0.62, no chest pain, no WMA on echo. Await last nuclear stress test and will confer with his primary business machines teacher as well to review outpatient chart.
-Continue with Heparin gtt, renewed by hospitalist on 10/29/24
-Cont aspirin 81 mg daily
-There is no known h/o CAD.
-Outpatient dose of atorvastatin 10 mg daily was held, will restart.
-Outpatient doses of valsartan 160 mg daily has been continued.
-Outpatient dose of amlodipine 5 mg daily has been continued.
-Orthostatic VS unremarkable 10/29/24
-CXR in [facility] 10/27/24 showed moderate elevation of the right hemidiaphragm with adjacent mild subpleural subsegmental atelectasis and scarring in the right lower lung which appears new from 12/08/2010.
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
Subjective
Date of Service: October 29, 2024
Feels well, no chest pain
Objective
Labs:
10/29/24 06:18
10/27/24 18:27
Labs
Hgb 13.3 g/dL (13.0-18.0) 10/29/24 06:18
Hct 39.6 % (39.0-52.0) 10/29/24 06:18
Plt Count 358 10^3/uL (130-400) 10/29/24 06:18
APTT 83.9 Sec (23.4-35.0) H 10/29/24 06:18
Sodium 136 mmol/L (135-145) 10/27/24 18:27
Potassium 4.5 mmol/L (3.5-5.1) 10/27/24 18:27
BUN 21 mg/dl (9-20) H 10/27/24 18:27
Creatinine 1.2 mg/dL (0.7-1.3) 10/27/24 18:27
Glucose 160 mg/dl (70-99) H 10/27/24 18:27
Troponins
10/27/24 10/27/24 10/28/24
18: 22:01 03:48
Troponin I 0.050 H* 0.167 H* D 0.584 H* D
10/28/24 10/29/24
09:40 06:18
Troponin I 0.622 H* 0.389 H*
Vital Signs and I&O:
Vital Signs
Temp Pulse Resp BP Pulse Ox
98.4 F 81 18 126/78 96
10/29/24 11:20 10/29/24 11:20 10/29/24 11:20 10/29/24 11:20 10/29/24 11:20
Vital Signs
Temp Pulse Resp BP Pulse Ox
98.4 F 81 18 126/78 96
10/29/24 11:20 10/29/24 11:20 10/29/24 11:20 10/29/24 11:20 10/29/24 11:20
Intake & Output
10/27/24 10/28/24 10/29/24 10/30/24
06:59 06:59 06:59 06:59
Intake Total 112 / 112
Balance 112 / 112
Physical Exam
Physical Exam
GEN: NAD. AAOx3
HEENT: MMM
LUNGS: RA. No audible wheeze
CV: SR on tele. 10/01 syst LSB
ABD: ND
EXT: No edema B/L
NEURO: Gross non-focal
SKIN: Warm, dry and pink. No rash
[2024-10-29] MEDS: ROCEPHIN 1000 MG IV (14:12)
[2024-10-29] MEDS: STERILE WATER FOR INJECTION 10 ML IV (14:12)
--- NOTE | 2024-10-29 15:24 | W.PN.UPDATE ---
Update Note
Progress Note Update
Patient completed exercise nuclear stress test 07/09/2022. GVH study. Exercised for 13 minutes of Calvin protocol for 17.2 METS of activity and reached 103% MPHR. No significant myocardial infarction or ischemia. Low risk stress SPECT myocardial
perfusion study
Echo 11/17/2023: GVH study, EF 55 to 60%, normal RV size and function, mild to moderate concentric LVH with basal septal hypertrophy, mild to moderate peak/mean 41/18.6 mmHg and KARLOS 1.3 cm SQ, mild thickening of the anterior and posterior leaflets
of the mitral valve with mild to moderate posterior MAC and mild MR, ascending aorta mildly to moderately dilated with normal aortic root and arch
Called up to patient and updated him on the last stress test being in 2021 and he is agreeable to exercise nuclear stress test in AM.
--- NOTE | 2024-10-29 15:36 | CM ---
Alert awake oriented patient who lives with his Marcy who lives in a 1 story home with 1 step to enter. He is independent in driving and in all activities of daily living.He was offered VN he declined need.His will drive him home.
No VN hx / No SNF history
Pharmacy [facility] [id number] Krishnan
PLAN Home Declined VN
--- NOTE | 2024-10-29 18:00 | W.PN.HOSP.TC ---
Today's Communication/Plan
-
EST tomorrow
continue abx until dc
Assessment / Plan
Assessment / Plan
64-year-old male with past medical history of hypertension hyperlipidemia presenting to the emergency department via EMS after he had a syncopal episode while out to dinner with his and friends patient reports that around 3:00 this afternoon
while in his basement doing some housework he developed transient lightheadedness, pain in the left posterior portion of his neck, nausea which lasted for few seconds.Patient's spouse reports that while sitting at the table at dinner, prior to
eating, patient just slumped over on his chair, lost consciousness and was laid on the ground. After a few seconds patient awoke and proceeded to have voluminous nonbloody nonbilious emesis. denied ALVES. denied fever, chills, chest pain,
palpitation, sob.denied abdominal pain. denied dysuria or hematuria.
# Syncope /elevated trop concern for ACS, potentially related to
#hxt of Aortic stenosis
-tro 0.050-->0.167-->0.584-->0.622-->0.389
-EKG NSR
-neg D-dimer
-Obtain echocardiogram
-obtain orthostatics
-Cardiology consult, as per jennifer Fernández EST 10/30
#leukocytosis likely stress reaction
-wbc 18.3-->13.5-->12.1-->9.6k
-UA bacteria many, +WBC. Culture neg, though data would fit chronic prostatitis
high probability for UTI/Prostatitis - possible contributing to syncope, WBC normalizing with abx, transition to oral at time of dc
-Chest x-ray 1. Moderate elevation of the right hemidiaphragm with adjacent mild subpleural subsegmental atelectasis and scarring in the right lower lung which appears new from 12/08/2010.
2. No radiographic evidence for pneumonia.
# Essential hypertension
-Norvasc and valsartan continued
# Hyperlipidemia
-Statin continued
# DVT prophylaxis
-Lovenox subcu
# CODE STATUS
-Full code
Anticipated Discharge: 24 - 48 hours
Subjective/Interval History
-
Date of Service: October 29, 2024
Generally feeling better
Objective Data
-
Labs:
Laboratory Results
10/29/24
06:18
WBC 9.6
Hgb 13.3
Hct 39.6
Plt Count 358
APTT 83.9 H
Vital Signs:
Vital Signs
Temp Pulse Resp BP Pulse Ox
99.2 F 89 16 113/75 94
10/29/24 15:51 10/29/24 15:51 10/29/24 15:51 10/29/24 15:51 10/29/24 15:51
I&O
10/28/24 10/29/24 10/30/24
06:59 06:59 06:59
Intake Total 112 / 112
Balance 112 / 112
Review of Systems
-
History Source: Patient and Family (, family friends at bedside)
Constitutional: Denies Fever
EENT: Reports No Symptoms Reported
Respiratory: Reports No Symptoms; Denies Cough or Trouble Breathing
Cardiac: Reports No Symptoms; Denies Chest Pain
Abdomen/GI: Reports No Symptoms
Musculoskeletal: Reports No Symptoms
Physical Exam
-
General: Well Developed, Well Nourished and No Apparent Distress
HEENT: Normocephalic, Atraumatic and Moist Mucous Membranes
Respiratory: Clear to Auscultation; Negative Wheezes, Rales or Rhonchi
Cardiac: Regular Rhythm, S1/S2 and Murmur (3/6AS m)
GI: Nontender and Nondistended
Musculoskeletal: No Clubbing, No Cyanosis and No Edema
Neuro: Awake, Alert and Oriented
[2024-10-30 03:48] VITALS: BP 119/69
[2024-10-30 07:30] LABS: Hematocrit 38.8 % (39.0-52.0); Mean Corp Hgb Conc. 33.5 g/dL (33.0-37.0); Mean Corpuscular Hgb 29.4 pg (27.0-31.0); Mean Corpuscular Volume 87.8 fL (80.0-94.0); Mean Platelet Volume 9.8 fL (7.4-10.4); Platelet Count 371 10^3/uL (130-400); Red Blood Cell Count 4.42 10^6/uL (4.70-6.10); Red Cell Dist. Width 12.2 % (11.5-14.5); White Blood Cell Count 9.1 10^3/uL (4.8-10.8)
[2024-10-30 07:50] LABS: APTT 29.2 Sec (23.4-35.0)
[2024-10-30] MEDS: DIOVAN 160 MG PO (10:53)
[2024-10-30] MEDS: LIPITOR 10 MG PO (10:55)
[2024-10-30] MEDS: NORVASC 5 MG PO (10:55)
[2024-10-30] MEDS: LOW STRENGTH ASPIRIN 81 MG PO (10:56)
[2024-10-30 11:01] VITALS: BP 123/82
[2024-10-30] MEDS: STERILE WATER FOR INJECTION 10 ML IV (13:52)
[2024-10-30] MEDS: ROCEPHIN 1000 MG IV (13:52)
--- NOTE | 2024-10-30 13:53 | W.PN.CARDCBS ---
Addendum entered and electronically signed by Erwin Mcgee MD 10/30/24 17:09:
I saw and examined the patient.
The Parking Garage Manager's note was reviewed and I agree with the note.
Comment:
GEN: No distress, awake, Ox3
HEENT: supple, anicteric, mmm
LUNGS: CTA, no wheezes/rales
CV: Reg, S1/S2, 1/6 syst LSB, no gallop
ABD: soft, BS+, NT/ND
EXT: No edema
NEURO: Gross non-focal
SKIN: No rash
Plan:
Mibi with no ischemia. Nl EF
Rec 7 day monitor upon D/C
Con't Norvasc/Valsartan
Original Note:
Today's Communication / Plan
-
7 day monitor applied
Reports and disc with echo images given to patient
Stable for d/c to home
52 min in coordination of care for continuity of care
Impression / Plan
-
PCP: Dr. Toshia Krishnan
Card: Dr. Morales
Impression:
Admitted with syncope and elevated Troponin10/27/24
Syncope 10/27/24
near syncope associated with pain initially and then hours later abrupt syncope while seated at dinner table and then awoke and vomited
Moderate peak/mean 44/22 and KARLOS 1.1 cm sq by echo 10/29/24
Abnormal echo, thickened aortic valve
Abnormal UA with no growth on urine culture
Elevated Troponin
HTN
Hyperlipidemia
Echo 11/17/2023: [facility] study, EF 55 to 60%, normal RV size and function, mild to moderate concentric LVH with basal septal hypertrophy, mild to moderate peak/mean 41/18.6 mmHg and KARLOS 1.3 cm SQ, mild thickening of the anterior and posterior leaflets
of the mitral valve with mild to moderate posterior MAC and mild MR, ascending aorta mildly to moderately dilated with normal aortic root and arch
Echo 10/29/2024: Preliminary report, EF 50% without WMA, moderate peak/mean 44/22 mmHg and KARLOS 1.1 cm sq
Exercise nuclear stress test 07/09/2022: [facility] study. Exercised for 13 minutes of Calvin protocol for 17.2 METS of activity and reached 103% MPHR. No significant myocardial infarction or ischemia. Low risk stress SPECT myocardial perfusion study
Lexiscan nuclear stress test 10/30/24: Small, mild fixed inferolateral perfusion defect that improves with prone imaging, no significant ischemia, EF 61%
Plan:
-Patient with syncope on admission and no recurrence. Telemetry showed a brief, self-limited episode of what looks like may be atrial tachycardia on the morning of 10/30/2024 which was around the time the patient was being transported for his stress
test. No other significant findings on telemetry.
-Orthostatic VS negative.
-Stress test as noted above. Reviewed with patient and . 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
-Echo with EF 50% and stable moderate . Appearance of aortic valve on echo was reviewed with patient's primary cloth winder machine operator and appeared similar to last echo. Patient has been afebrile and blood cultures without growth at 24 hours.
-Troponin peaked 0.62 and will be managed as a nonischemic myocardial injury troponin elevation.
-UA abnormal, but culture without growth. Patient has been treated with Rocephin 1 g IV daily since admission.
-Outpatient dose of atorvastatin 10 mg daily has been continued.
-Outpatient doses of valsartan 160 mg daily has been continued.
-Outpatient dose of amlodipine 5 mg daily has been continued.
-CXR in [facility] 10/27/24 showed moderate elevation of the right hemidiaphragm with adjacent mild subpleural subsegmental atelectasis and scarring in the right lower lung which appears new from 12/08/2010.
-Paper copies of echo and stress test printed out and provided to patient by me. Also arranged for a disc with echo images to be made in echo and sent to patient's room.
-Also arranged for a 7 day CAM monitor to be applied to patient prior to d/c to home. Patient can then remove monitor and mail back to the office in postage-paid box. Offered that patient could go to [facility] office for monitor placement tomorrow, but
patient and anxious to get monitoring period started due to upcoming vacation.
-Stable for d/c to home on 10/30/24 from a cardiac standpoint
Progress Note - Hand Sign Writer
Subjective
Date of Service: October 30, 2024
He feels well, no syncope
Objective
Labs:
10/30/24 05:29
10/27/24 18:27
Labs
Hgb 13.0 g/dL (13.0-18.0) 10/30/24 05:29
Hct 38.8 % (39.0-52.0) L 10/30/24 05:29
Plt Count 371 10^3/uL (130-400) 10/30/24 05:29
APTT 29.2 Sec (23.4-35.0) 10/30/24 05:27
Sodium 136 mmol/L (135-145) 10/27/24 18:27
Potassium 4.5 mmol/L (3.5-5.1) 10/27/24 18:27
BUN 21 mg/dl (9-20) H 10/27/24 18:27
Creatinine 1.2 mg/dL (0.7-1.3) 10/27/24 18:27
Glucose 160 mg/dl (70-99) H 10/27/24 18:27
Troponins
10/27/24 10/27/24 10/28/24
18:27 22:01 03:48
Troponin I 0.050 H* 0.167 H* D 0.584 H* D
10/28/24 10/29/24
09:40 06:18
Troponin I 0.622 H* 0.389 H*
Vital Signs and I&O:
Vital Signs
Temp Pulse Resp BP Pulse Ox
97.8 F 92 18 123/82 97
10/30/24 11:01 10/30/24 11:01 10/30/24 11:01 10/30/24 11:01 10/30/24 11:10
Vital Signs
Temp Pulse Resp BP Pulse Ox
97.8 F 92 18 123/82 97
10/30/24 11:01 10/30/24 11:01 10/30/24 11:01 10/30/24 11:01 10/30/24 11:10
Intake & Output
10/28/24 10/29/24 10/30/24 10/31/24
06:59 06:59 06:59 06:59
Intake Total 112 / 112 240 / 240
Balance 112 / 112 240 / 240
Physical Exam
Physical Exam
GEN: NAD. AAOx3
HEENT: MMM
LUNGS: RA. No audible wheeze
CV: SR on tele. 10/01 syst LSB
ABD: ND
EXT: No edema B/L
NEURO: Gross non-focal
SKIN: Warm, dry and pink. No rash
[2024-10-30 15:52] VITALS: BP 106/73
--- NOTE | 2024-10-30 16:36 | W.PN.HOSP.TC ---
Addendum entered and electronically signed by Ritesh Vitale MD 11/01/24 07:06:
As per cardio, elevated troponin was a nonischemic myocardial injury troponin elevation
Original Note:
Today's Communication/Plan
-
dc to home
Assessment / Plan
Assessment / Plan
64-year-old male with past medical history of hypertension hyperlipidemia presenting to the emergency department via EMS after he had a syncopal episode while out to dinner with his and friends patient reports that around 3:00 this afternoon
while in his basement doing some housework he developed transient lightheadedness, pain in the left posterior portion of his neck, nausea which lasted for few seconds.Patient's spouse reports that while sitting at the table at dinner, prior to
eating, patient just slumped over on his chair, lost consciousness and was laid on the ground. After a few seconds patient awoke and proceeded to have voluminous nonbloody nonbilious emesis. denied ALVES. denied fever, chills, chest pain,
palpitation, sob.denied abdominal pain. denied dysuria or hematuria.
# Syncope /elevated trop concern for ACS, potentially related to
#hxt of Aortic stenosis
-tro 0.050-->0.167-->0.584-->0.622-->0.389
nonischemic myocardial injury
-EKG NSR
-neg D-dimer
-Obtain echocardiogram
-obtain orthostatics
-Cardiology consult, as per Jolene,completed EST 10/30
#leukocytosis likely due to UTI/Prostatitis
-wbc 18.3-->13.5-->12.1-->9.6-->9.1k
-UA bacteria many, +WBC. Culture neg, though data would fit chronic prostatitis
high probability for UTI/Prostatitis - possible contributing to syncope, WBC normalizing with abx, transition to oral at time of dc
-Chest x-ray 1. Moderate elevation of the right hemidiaphragm with adjacent mild subpleural subsegmental atelectasis and scarring in the right lower lung which appears new from 12/08/2010.
2. No radiographic evidence for pneumonia.
# Essential hypertension
-Norvasc and valsartan continued
# Hyperlipidemia
-Statin continued
# DVT prophylaxis
-Lovenox subcu
# CODE STATUS
-Full code
dc to home
reviewed with cadio and pt
see dictated note
More than 30 minutes spent in discharge including
Final examination of the patient
Summarizing hospital stay
Instructions for continuing care to all relevant caregivers
Preparation of discharge records, prescriptions, and referral forms
Total time spent (in minutes): 45
Anticipated Discharge: Today
Subjective/Interval History
-
Date of Service: October 30, 2024
Feels well and is anxiously awaiting dc
Objective Data
-
Labs:
Laboratory Results
10/30/24 10/30/24
05:27 05:29
WBC 9.1
Hgb 13.0
Hct 38.8 L
Plt Count 371
APTT 29.2
Vital Signs:
Vital Signs
Temp Pulse Resp BP Pulse Ox
98.3 F 87 18 106/73 98
10/30/24 15:52 10/30/24 15:52 10/30/24 15:52 10/30/24 15:52 10/30/24 15:52
I&O
10/29/24 10/30/24 10/31/24
06:59 06:59 06:59
Intake Total 112 / 112 240 / 240
Balance 112 / 112 240 / 240
Review of Systems
-
History Source: Patient and Physician (reviewed with cardio)
Constitutional: Denies Fever
EENT: Reports No Symptoms Reported
Respiratory: Reports No Symptoms; Denies Cough or Trouble Breathing
Cardiac: Reports No Symptoms; Denies Chest Pain
Abdomen/GI: Reports No Symptoms
Musculoskeletal: Reports No Symptoms
Physical Exam
-
General: Well Developed, Well Nourished and No Apparent Distress
HEENT: Normocephalic, Atraumatic and Moist Mucous Membranes
Respiratory: Clear to Auscultation; Negative Wheezes, Rales or Rhonchi
Cardiac: Regular Rhythm, S1/S2 and Murmur (3/6AS m)
GI: Nontender and Nondistended
Musculoskeletal: No Clubbing, No Cyanosis and No Edema
Neuro: Awake, Alert and Oriented
--- NOTE | 2024-10-30 16:57 | W.DS.TRANS ---
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
-
Discharge Instructions:
Discharge Diagnosis/Procedures Syncope
Diet As tolerated
Activity As tolerated
Driving Restrictions As prior to admission
Bathing Restrictions None
Blood Work Urine Analysis
Others Tests -A 7 day CAM monitor was applied prior to
leaving the hospital. At the end of the
monitoring period you can remove the monitor and
place it in the postage-paid box and mail back
to the office. If you have any problems with
monitoring then please call Theresa at [phone]
[phone].
-Copies of your stress test an echo were given
to you. You were also give a disc with echo
images. Please pass all of this along to
Carmen.
Instructions:
Stand-Alone Forms:
Changes to Home Medications: Yes
Discharge Medications:
DC Medications w/original date entered in [facility]
amlodipine 5 mg tablet (Norvasc) 5 mg PO DAILY 10/27/24
atorvastatin 10 mg tablet 10 mg PO DAILY 10/27/24
valsartan 160 mg tablet 160 mg PO DAILY 10/27/24
aspirin 81 mg tablet,delayed release (Adult Low Dose Aspirin) 81 mg PO DAILY #30 tabs 10/30/24
cefuroxime axetil 500 mg tablet 500 mg PO BID 20 days #40 tabs 10/30/24
Home Medication Changes
Ceftin added for next 20 days
ASA 81 mg added
Pending Results: No
--- NOTE | 2024-10-30 17:09 | CM ---
MD entered order for discharge.
Spoke with pt he said he was ready for discharge.
His will drive him home.
Offered Vn he declined need.
IMM reviewed signed on chart.
PLAN Home no needs
--- NOTE | 2024-10-31 08:50 | PN.CDI ---
CDI
- -
CDI:
Physician Documentation Request
Admit Date: 10/27/24 22:04
Dear Doctor Iam,
Patient presented to ED after syncopal episode. Troponin noted to be elevated. Discharge summary states 'Nonischemic troponin elevation'
Could you clarify the appropriate diagnosis that supports the above lab abnormalities and additional evaluation/monitoring:
Nonischemic myocardial injury
Nonischemic troponin elevation only
Other
Use of terms such as suspected, likely, concern for, or probable (associated with a specific diagnosis that is being evaluated, monitored, or treated as if it exists) are acceptable and can be coded in the inpatient setting, when documented at the
time of discharge.
Thank you,
Ruby Cartagena RN, BSN
CDI Specialist
tiger text
Please use your independent medical judgment in providing your response.
== END 2024-10-30 17:14 | disposition home or self-care (01) | DRG 307 ==
LOC: 4 EAST ACU 22:04
PROVIDERS: Emergency Medicine; Internal Medicine; Internal Medicine Cardiovascular Disease; Physician Assistant Medical; Registered Nurse; ADMITTING PHYSICIAN Internal Medicine; ATTENDING PHYSICIAN Internal Medicine; CONSULT PHYSICIAN Internal Medicine Cardiovascular Disease; EMERGENCY PHYSICIAN Student in an Organized Health Care Education/Training Program; FAMILY PHYSICIAN Student in an Organized Health Care Education/Training Program
PROC: 3E033HZ Introduction of Radioactive Substance into Peripheral Vein, Percutaneous Approach (ICD-10-PCS; 2024-10-30)
PROC: 4A02XM4 Measurement of Cardiac Total Activity, External Approach (ICD-10-PCS; 2024-10-30)
DX: I35.0 Nonrheumatic aortic (valve) stenosis (principal); N39.0 Urinary tract infection, site not specified; J98.11 Atelectasis; I5A Non-ischemic myocardial injury (non-traumatic); N41.1 Chronic prostatitis; I10 Essential (primary) hypertension; E78.00 Pure hypercholesterolemia, unspecified; R79.89 Other specified abnormal findings of blood chemistry; I77.810 Thoracic aortic ectasia; E86.9 Volume depletion, unspecified; Z11.52 Encounter for screening for COVID-19; I49.3 Ventricular premature depolarization; Z82.49 Family history of ischemic heart disease and other diseases of the circulatory system; Z79.899 Other long term (current) drug therapy
CPT/HCPCS: 71046; 78452; 80053; 80061; 81003; 81015; 83036; 84443; 84484; 85025; 85027; 85379; 85730; 87040; 87086; 87502; 87811; 93005; 93017; 93306; 93880; 96365; 96366; 99285; A9500